=== PATIENT | female | born 1970 | race American Indian/Alaskan Native ===

== ENCOUNTER 2018-08-20 11:31 | Observation (INO) | payer OTHER ==
--- NOTE | 2018-08-19 11:05 | Anesthesia Consultation ---
Anesthesia Consult and Med Hx - Airway Anesthetic Teeth Evaluation: Chipped ROM Head & Neck: Adequate Mental/Hyoid Distance: Adequate Mallampati Class: Class II Intubation Access Assessment: Good - Pulmonary Exam CTA: Yes - Cardiac Exam Cardiac Exam: RRR - Pre-Operative Health Status ASA Pre-Surgery Classification: ASA2 Proposed Anesthetic Plan: General Nerve Block: TAP - Pulmonary Hx Smoking: Yes - Cardiovascular System Hx Hypertension: Yes (Since 05/2018) - Central Nervous System Hx Psychiatric Problems: No - Hematic Hx Anemia: Yes - Other Systems Hx Alcohol Use: Yes (Occas) Hx Cancer: No
[2018-08-19 11:10] LABS: Basophils # (Auto) 0.1 K/mm3 (0.0-0.1); Basophils % (Auto) 1.3 % (0.0-1.8); Eosinophils # (Auto) 0.3 K/mm3 (0.0-0.4); Eosinophils % (Auto) 2.4 % (0.0-4.3); Hemoglobin 11.6 gm/dl (10.1-14.3); Lymphocytes # (Auto) 2.2 K/mm3 (1.2-5.4); Lymphocytes % (Auto) 19.5 % (13.4-35.0); Mean Corpuscular HGB Conc 32 % (30-34); Mean Corpuscular Volume 91 fl (79-97); Monocytes # (Auto) 0.7 K/mm3 (0.0-0.8); Monocytes % (Auto) 5.8 % (0.0-7.3); Platelet Count 193 K/mm3 (140-440); Red Blood Count 3.97 M/mm3 (3.65-5.03)
[2018-08-19 11:24] LABS: BUN/Creatinine Ratio 13; Blood Urea Nitrogen 8 mg/dL (7-17); Calcium 8.7 mg/dL (8.4-10.2); Hemolysis Index 4
[~2018-08-20 11:31] MED LIST: LACTATED RINGERS 1,000 ML IV SCH; MARCAINE 0.5% INFILTRATI NR; SUBLIMAZE IV ONE; VERSED IV NR
--- NOTE | 2018-08-20 11:38 | History and Physical Report ---
History of Present Illness Date of examination: 08/20/18 Chief complaint: Symptomatic uterine fibroids; Cervical dysplasia History of present illness: Pt is a 48yo BF LMP 07/25/18 presents for surgical evaluation and treatment of uterine fibroids. She complains of prolonged heavy vaginal bleeding, and pelvic ultrasound shows an enlarged uterus with 3 fibroids. Her Pap smear showed ASCUS with positive HPV, and cervical biopsy showed CATHERINE-2. She is therefore scheduled for a Robotic-Assisted Total Hysterectomy with ovarian conservation. Past History Past Medical History: asthma, hypertension, GERD Past Surgical History: appendectomy, BEAD STRINGER/uterine surgery (BTL) BEAD STRINGER History: abnormal PAP smear, fibroids Social history: no significant social history, single Medications and Allergies Allergies Allergy/AdvReac Type Severity Reaction Status Date / Time erythromycin base Allergy Rash Verified 08/16/18 10:57 Home Medications Medication Instructions Recorded Confirmed Last Taken Type Lisinopril/Hydrochlorothiazide 1 each PO DAILY 08/16/18 08/20/18 08/19/18 History [Zestoretic 10-12.5 mg Tablet] Active Meds: Active Medications Lactated Ringer's (Lactated Ringers) 1,000 mls @ 42 mls/hr IV DIRECT ART Review of Systems All systems: negative - Vital Signs Vital signs: Vital Signs Temp Pulse Resp BP Pulse Ox 97.6 F 87 20 139/80 100 08/19/18 10:40 08/19/18 10:40 08/19/18 10:40 08/19/18 10:40 08/19/18 10:40 Temp Pulse Resp BP Pulse Ox 97.6 F 87 20 139/80 100 08/19/18 10:40 08/19/18 10:40 08/19/18 10:40 08/19/18 10:40 08/19/18 10:40 - Physical Exam Breasts: Positive: deferred Cardiovascular: Regular rate Lungs: Positive: Clear to auscultation Abdomen: Positive: normal appearance Genitourinary (Female): Positive: normal external genitalia Vagina: Positive: normal moisture Uterus: Positive: enlarged Extremities: Positive: normal Results Result Diagrams: 08/19/18 10:50 08/19/18 10:50 All other labs normal. Ultrasound: report reviewed Assessment and Plan - Patient Problems (1) Uterine fibroid Onset Date: 08/20/18 Current Visit: Yes Status: Chronic Qualifiers: Uterine leiomyoma location: intramural and subserous Qualified Code(s): D25.1 - Intramural leiomyoma of uterus; D25.2 - Subserosal leiomyoma of uterus Plan to address problem: A: Symptomatic uterine fibroids Menorrhagia Cervical dysplasia P: Admit for a Robotic-Assisted Total Hysterectomy with Bilateral salpingectomy (2) Menorrhagia with irregular cycle Onset Date: 08/20/18 Current Visit: Yes Status: Chronic (3) Cervical dysplasia Onset Date: 08/20/18 Current Visit: Yes Status: Chronic
[2018-08-20] MEDS ORDERED: ANCEF/STERILE WATER 2 GM/20 ML 2 GM/20 ML SYRINGE IV NR (12:00)
[2018-08-20] MEDS ORDERED: PROVENTIL IH ONE (12:05)
[2018-08-20] MEDS ORDERED: PROVENTIL IH NR (12:30)
[2018-08-20] MEDS ORDERED: ZOFRAN IV PRN ×2 (13:41→16:53)
[2018-08-20] MEDS ORDERED: DEMEROL IV PRN (13:41)
[2018-08-20] MEDS ORDERED: SUBLIMAZE IV PRN (13:41)
[2018-08-20] MEDS ORDERED: NARCAN 0.4 MG/1 ML IV PRN (13:41)
[2018-08-20] MEDS ORDERED: DILAUDID IV PRN (13:41)
--- NOTE | 2018-08-20 13:43 | Anesthesia Day of Surgery ---
Anesthesia Day of Surgery - Day of Surgery Patient Examined: Yes Patient H&P Reviewed: Yes Patient is NPO: Yes Beta Blockers: No Cardiac Clearance: No Pulmonary Clearance: No
[2018-08-20] MEDS ORDERED: ZEMURON IV ONE (13:47)
[2018-08-20] MEDS ORDERED: DIPRIVAN 10 MG/ML IV ONE (13:47)
[2018-08-20] MEDS ORDERED: XYLOCAINE MPF 2% ONE (13:47)
[2018-08-20] MEDS ORDERED: SUBLIMAZE ONE (13:47)
[2018-08-20] MEDS ORDERED: MARCAINE 0.5% INFILTRATI ONE (13:52)
[2018-08-20] MEDS ORDERED: TYLENOL PO NR (14:00)
[2018-08-20] MEDS ORDERED: NEURONTIN PO NR (14:00)
[2018-08-20] MEDS ORDERED: VERSED IV NR (14:00)
[2018-08-20] MEDS ORDERED: MARCAINE 0.5% INFILTRATI NR (14:00)
[2018-08-20] MEDS ORDERED: NEOSPORIN GU IR ONE ×2 (14:43→16:13)
[2018-08-20] MEDS ORDERED: NACL 0.9% IR ONE ×2 (16:13)
[2018-08-20] MEDS ORDERED: PERCOCET 5/325 PO PRN (16:53)
[2018-08-20] MEDS ORDERED: NORCO 5/325 PO PRN (16:53)
[2018-08-20] MEDS ORDERED: TYLENOL PO PRN (16:53)
[2018-08-20] MEDS ORDERED: REGLAN PO PRN (16:53)
[2018-08-20] MEDS ORDERED: D5LR 1,000 ML IV SCH (17:00)
[2018-08-20] MEDS ORDERED: TORADOL IV SCH (17:00)
[2018-08-20] MEDS ORDERED: ROBINUL ONE (17:04)
[2018-08-20] MEDS ORDERED: DECADRON ONE (17:04)
[2018-08-20] MEDS ORDERED: BLOXIVERZ ONE (17:04)
--- NOTE | 2018-08-20 17:10 | Operative Report ---
Operative Report Operative Report: Date of procedure: 08/20/2018 Pre-operative diagnosis: 1. Symptomatic uterine fibroids 2. Menorrhagia 3. Cervical dysplasia Post-operative diagnosis: Same Procedure name(s): 1. Robotic-Assisted Total Hysterectomy 2. Bilateral salpingectomy Surgeon: Kwaku Hewitt MD Automobile Tester: Yari Ludwig CSA Anesthesia: SHA Block followed by general endotracheal intubation EBL: Less than 100 mL Findings: A 10-12 week size multiple myomatous uterus with fallopian tubes showed evidence of previous tubal ligation bilaterally, and normal ovaries bilaterally. Procedure: After the patient's first correctly identified she was prepped and draped in the usual sterile fashion and placed in the dorsolithotomy position. The bladder was first catheterized using Wayne catheter and the speculum was placed in the vagina and the anterior lip of the cervix was grasped using a single-tooth tenaculum, and the medium Vesicare cup was placed. The tenaculum and speculum was then removed from the vagina and attention was then turned to the abdomen. The skin knife was used to make a small incision approximately 5 cm above the umbilicus through which a 12 mm trocar was placed under direct visualization. After adequate amount of abdominal insufflation visualization of the pelvic organs found the uterus to be enlarged and the tubes showed evidence of previous tubal ligation bilaterally and normal ovaries bilaterally. A right and left paramedian incision was made through which the 8 mm trochars were pl aced under direct visualization and a 5 mm trocar was placed in the right upper quadrant. The patient was then placed in steep Trendelenburg positioning and the robot was docked on the patient's left side. After all the robotic ports were connected and adequate functioning of the robotic arms were tested the surgeon then proceeded to the console to begin the hysterectomy. First the left round ligament was grasped, cauterized and cut, the left utero- ovarian ligaments were grasped, cauterized and cut, and the left fallopian tube also grasped, cauterized and cut along the mesosalpinx, thus freeing the left ovary from the left uterine sidewall. The same procedure was performed on the right. The right round ligament was grasped, cauterized and cut, the right utero-ovarian ligaments were grasped, cauterized and cut, and the right fallopian tube also grasped, cauterized and cut along the mesosalpinx, thus freeing the right ovary from the right uterine sidewall. The bladder flap was taken down anteriorly and the uterine vessels were grasped, cauterized and cut bilaterally. The cardinal ligaments were sequentially grasped, cauterized and cut down to the level of the uterosacral ligaments. At this time the posterior colpotomy was performed over the Vcare cup, and the cervix was circumscribed beginning posteriorly and meeting anteriorly until the cervix was freed. The cervix and uterus was then removed through the vagina and sent to pathology. The vaginal cuff was then closed using 2-0 Vloc suture in a running fashion. Irrigation was then performed and after good hemostasis was achieved the procedure was considered complete. The Tisseel sealant was then sprayed across the vaginal cuff site, and after excellent hemostasis was assured Interceed was placed across the vaginal cuff site. The intra-abdominal pressure was reduced to 5 mmHg, and observation of the vaginal cuff and pedicles showed excellent hemostasis. All instruments were then removed from the abdominal cavity. And each incision was closed using 0 Vicryl suture in a [id number] configuration on the fascia followed by 4-0 Monocryl suture in a sub-cuticular fashion on the skin. Each incision was also infiltrated using 0.5% Marcaine solution. The vaginal pack was removed. The patient tolerated the procedure well and was transported to the recovery room in stable condition.
[2018-08-20] MEDS ORDERED: APRESOLINE ONE (17:19)
[2018-08-20] MEDS ORDERED: APRESOLINE IV ONE ×2 (17:20→17:44)
[2018-08-20] MEDS ORDERED: DILAUDID ONE ×2 (17:20→17:35)
[2018-08-20] MEDS ORDERED: DEMEROL ONE (17:41)
[2018-08-20] MEDS ORDERED: NORMODYNE IV ONE ×2 (18:09→18:10)
[2018-08-20] MEDS ORDERED: ANCEF/NS 1 GM/50 ML 1 GM/50 ML BAG IV SCH (21:00)
[2018-08-20] MEDS ORDERED: COLACE PO SCH (22:00)
[2018-08-20] MEDS: MILK OF MAGNESIA PO PRN (23:01)
[2018-08-21 06:15] LABS: Hematocrit 34.3 % (30.3-42.9)
--- NOTE | 2018-08-21 07:36 | Post Anesthesia Evaluation ---
- Post Anesthesia Evaluation Patient Participated: Yes Airway Patent: Yes Stable Respiratory Function: Yes Nausea/Vomiting: No Temp > 96.8F: Yes Pain Manageable: Yes Adequeate Hydration: Yes Anesthesia Complications: No
[2018-08-21] MEDS: MILK OF MAGNESIA PO PRN (07:53)
--- NOTE | 2018-08-21 09:00 | Progress Note ---
Assessment and Plan - Patient Problems (1) Uterine fibroid Onset Date: 08/20/18 Current Visit: Yes Status: Resolved Qualifiers: Uterine leiomyoma location: intramural and subserous Qualified Code(s): D25.1 - Intramural leiomyoma of uterus; D25.2 - Subserosal leiomyoma of uterus (2) Menorrhagia with irregular cycle Onset Date: 08/20/18 Current Visit: Yes Status: Resolved (3) Cervical dysplasia Onset Date: 08/20/18 Current Visit: Yes Status: Resolved (4) Status post robot-assisted surgical procedure Onset Date: 08/21/18 Current Visit: Yes Status: Resolved Plan to address problem: A: S/P RATH - POD #1 Doing well P: May go home today. Subjective - Subjective Date of service: 08/21/18 Principal diagnosis: s/p RATH - POD #1 Interval history: Pt is feeling well without complaints. She is tolerating a reg diet without nausea or vomiting, ambulating and voiding without difficulty. Patient reports: appetite normal, voiding normally, pain well controlled, flatus, ambulating normally, no dizzy ambulation, no nauseated Objective - Vital Signs Latest vital signs: Vital Signs Temp Pulse Resp BP BP Pulse Ox 08/21/18 08:00 18 08/21/18 07:54 18 08/21/18 05:31 98.3 F 74 20 146/71 99 08/20/18 23:40 98.8 F 83 20 165/74 98 08/20/18 20:51 97.9 F 88 20 155/76 99 08/20/18 18:55 98.9 F 86 22 146/77 97 08/20/18 18:15 81 20 156/78 95 08/20/18 18:05 96 H 166/74 08/20/18 18:00 86 20 172/77 96 08/20/18 17:45 98.5 F 89 22 187/90 97 08/20/18 17:40 86 184/93 08/20/18 17:30 93 H 20 186/88 98 08/20/18 17:20 79 190/101 08/20/18 17:15 80 20 193/97 100 08/20/18 17:10 88 16 172/97 100 08/20/18 17:04 97.3 F L 96 H 12 169/92 99 08/20/18 15:00 75 17 144/50 100 08/20/18 14:50 76 17 145/54 100 08/20/18 14:45 78 12 142/88 100 08/20/18 14:40 76 11 L 137/74 100 08/20/18 14:35 77 12 131/80 100 08/20/18 14:30 80 11 L 134/77 100 08/20/18 14:25 73 17 142/67 100 08/20/18 14:20 77 15 137/74 100 08/20/18 14:15 74 16 145/69 100 08/20/18 14:10 74 15 144/77 100 08/20/18 14:05 75 16 147/69 100 08/20/18 14:00 72 19 158/82 100 08/20/18 13:49 74 20 164/86 100 08/20/18 11:45 99 F 75 16 133/80 99 Intake and Output 08/20/18 08/21/18 08/21/18 22:59 06:59 14:59 Intake Total 350 1320 Output Total 200 600 Balance 150 720 Intake: IV 350 Oral 1320 Output: Urine 200 600 Void 600 Other: Total, Intake Amount 480 Total, Output Amount 600 Voiding Method Indwelling Catheter Toilet # Voids Void 400 - Exam Abdomen: Present: normal appearance, soft Extremities: Present: normal Incision: Present: normal, dry, intact - Labs Labs: Laboratory Tests 08/19/18 08/19/18 08/19/18 10:50 10:50 10:50 WBC 11.4 H RBC 3.97 Hgb 11.6 Hct 36.0 MCV 91 MCH 29 MCHC 32 RDW 17.0 H Plt Count 193 Lymph % (Auto) 19.5 [place] % (Auto) 5.8 Eos % (Auto) 2.4 Baso % (Auto) 1.3 Lymph # 2.2 [place] # 0.7 Eos # 0.3 Baso # 0.1 Seg Neutrophils % 71.0 H Seg Neutrophils # 8.1 H Sodium 140 Potassium 3.5 L Chloride 102.9 Carbon Dioxide 25 Anion Gap 16 BUN 8 Creatinine 0.6 L Estimated GFR > 60 BUN/Creatinine Ratio 13 Glucose 109 H Calcium 8.7 HCG, Qual Negative Blood Type Antibody Screen 08/20/18 08/21/18 12:22 05:59 WBC RBC Hgb 11.0 Hct 34.3 MCV MCH MCHC RDW Plt Count Lymph % (Auto) [place] % (Auto) Eos % (Auto) Baso % (Auto) Lymph # [place] # Eos # Baso # Seg Neutrophils % Seg Neutrophils # Sodium Potassium Chloride Carbon Dioxide Anion Gap BUN Creatinine Estimated GFR BUN/Creatinine Ratio Glucose Calcium HCG, Qual Blood Type O POSITIVE Antibody Screen Negative
[2018-08-21 09:20] VITALS: BP 144/83
--- NOTE | 2018-08-21 09:50 | Discharge Summary ---
Providers - Providers Date of Admission: 08/20/18 16:53 Date of discharge: 08/21/18 Attending physician: TOBY ARRIAZA Primary care physician: [employer] Hospitalization Reason for admission: other (Symptomatic uterine fibroids; Menorrhagia; Cervical dysplasia) Procedure: other (Robotic Assisted Total Hysterectomy with Bilateral salpingectomy) Episiotomy: none Incision: normal, dry, intact Other procedures: none complications: none Discharge diagnosis: other (s/p [facility]) Hospital course: Pt is a 48yo BF LMP 07/25/18 who presented for surgical evaluation and treatment of uterine fibroids. She complained of prolonged heavy vaginal bleeding, and pelvic ultrasound shows an enlarged uterus with 3 fibroids. Her Pap smear showed ASCUS with positive HPV, and cervical biopsy showed CATHERINE-2. She underwent an uncomplicated Robotic-Assisted Total Hysterectomy with Bilateral salpingectomy, and by POD #1 she was tolerating a reg diet without nausea or vomiting, ambulating and voiding without difficulty. She was therefore discharged to home on POD #1 in stable condition. Condition at discharge: Good Disposition: DC-01 TO HOME OR SELFCARE - Discharge Diagnoses (1) Uterine fibroid Status: Resolved Qualifiers: Uterine leiomyoma location: intramural and subserous Qualified Code(s): D25.1 - Intramural leiomyoma of uterus; D25.2 - Subserosal leiomyoma of uterus (2) Menorrhagia with irregular cycle Status: Resolved (3) Cervical dysplasia Status: Resolved Plan - Discharge Medications Prescriptions: Ibuprofen [Motrin] 800 mg PO Q8HR PRN #30 tablet PRN Reason: Pain, Mild (1-3) oxyCODONE /ACETAMINOPHEN [Percocet 5/325 mg] 1 tab PO Q6H PRN #30 tablet PRN Reason: Pain, Moderate (4-6) - Provider Discharge Summary Activity: routine, no sex for 6 weeks, no heavy lifting 4 weeks, no strenuous exercise Diet: routine Instructions: routine Additional instructions: [] Smoking cessation referral if applicable(refer to patient education folder for contact #) [] Refer to [facility] Booklet Call your doctor immediately for: * Fever > 100.5 * Heavy vaginal bleeding ( >1 pad per hour) * Severe persistent headache * Shortness of breath * Reddened, hot, painful area to leg or breast * Drainage or odor from incision. * Keep incision clean and dry at all times and follow doctor's instructions regarding bathing/showering - Follow up plan Follow up: TOBY ARRIAZA MD [Staff Physician] - 14 Days PRIMARY CARE, [Primary Care Provider] - 14 Days
== END 2018-08-21 10:40 | disposition home or self-care (01) ==
LOC: OR 11:31 → OB 16:53
PROVIDERS: ADMIT Obstetrics & Gynecology; ATTEND Obstetrics & Gynecology
DX: D25.9 Leiomyoma of uterus, unspecified (principal); N92.1 Excessive and frequent menstruation with irregular cycle; N87.9 Dysplasia of cervix uteri, unspecified; J45.909 Unspecified asthma, uncomplicated; I10 Essential (primary) hypertension; K21.9 Gastro-esophageal reflux disease without esophagitis; Z90.89 Acquired absence of other organs; Z98.890 Other specified postprocedural states
CPT/HCPCS: 36415; 58552; 64450; 80048; 84703; 85014; 85018; 85025; 86850; 86900; 86901; 88302; 88307; 96365; 96375; A4217; C1765; C9250; G0378; J0360; J0690; J1100; J1170; J1885; J2175; J2250; J2405; J2704; J2710; J3010; J7120; J7121; S2900

== ENCOUNTER 2018-08-29 14:27 | Emergency (ER) | payer OTHER ==
[2018-08-29 15:56] VITALS: BP 183/99
--- NOTE | 2018-08-29 15:58 | Emergency Department Report ---
Blank Doc - Documentation Documentation: 48 y o female presents to ED cc of cough s/p hysterectomy x last sunday and c onstipation worsening with cough has been taking percocet x 6 hours, stopped was prescribed [place] and 800 mg IBU states worsening cough hx of HTN taking lisinopril / hctz x may Cxr
--- NOTE | 2018-08-29 18:06 | XRay Report ---
PROCEDURE: XR CHEST ROUTINE 2V TECHNIQUE: PA and lateral views of the chest HISTORY: cough, pressure in chest COMPARISONS: None FINDINGS: There is mild elevation of the right hemidiaphragm. There is no evidence of focal infiltrate, pneumothorax or pleural fluid collection. The cardiomediastinal silhouette is normal in appearance. The bony structures are unremarkable. IMPRESSION: 1. No evidence of an acute pulmonary process. This document is electronically signed by Asuncion Reich MD., August 29 2018 06:04:40 PM ET
== END 2018-08-29 19:00 | disposition left against medical advice (07) ==
LOC: ED 14:27
DX: R05 Cough (principal); Z53.21 Procedure and treatment not carried out due to patient leaving prior to being seen by health care provider
CPT/HCPCS: 71046